=== PATIENT | male | born 1980 | race Caucasian/White ===

== ENCOUNTER 2017-02-11 13:53 | Emergency (ER) | payer OTHER ==
[~2017-02-11 13:53] MED LIST: ALBUTEROL17 GM INH; NO MEDICATIONS; TESSALON PERLE100 M1 PO; ZYRTEC PO
[2017-02-11] MEDS ORDERED: HYDROCODON-ACE1 EAC9 (13:59)
[2017-06-01] MEDS ORDERED: NO MEDICATIONS (22:15)
== END 2017-02-11 16:01 | disposition home or self-care (01) ==
LOC: SED 13:53
DX: S01.01XD Laceration without foreign body of scalp, subsequent encounter (principal); I10 Essential (primary) hypertension; Z88.8 Allergy status to other drugs, medicaments and biological substances; Z88.2 Allergy status to sulfonamides
CPT/HCPCS: 99281